=== PATIENT | female | born 2000 | race Caucasian/White ===

== ENCOUNTER 2022-04-02 23:54 | Emergency (ER) | payer SELFPAY ==
[~2022-04-02] VITALS: Ht 160 cm; Wt 82.0 kg
[2022-04-03] MEDS ORDERED: BUPRENORPHINE 8MG SL TABLET SL ONE (01:15)
[2022-04-03 02:26] VITALS: BP 107/59
== END 2022-04-03 02:28 ==
LOC: ER 23:54
DX: F11.13 Opioid abuse with withdrawal (principal); F15.13 Other stimulant abuse with withdrawal; F19.10 Other psychoactive substance abuse, uncomplicated; R03.0 Elevated blood-pressure reading, without diagnosis of hypertension
CPT/HCPCS: 99283; Z7610